=== PATIENT | female | born 1940 | race Two or more races ===

== ENCOUNTER 2017-10-07 11:59 | Inpatient (IN) | payer MEDICARE, MEDICAID ==
[~2017-10-07] VITALS: Ht 320 cm; Wt 103.2 kg
[~2017-10-07 11:59] MED LIST: ALBUAER3 IN; ALPR0.25 PO; BIMA0.01 OP; BRIM0.2S2 OP; CAR125T OR; FLUC100T34 PO; GLI2T PO; HYDR-1421; LEVO500T21 PO; PANT40T PO; PANT40TA2 PO; PRAV20TA3 PO; SACC250C PO
[2017-10-07 13:58] LABS: Basophils # (auto) 0.1 uL; Basophils % (auto) 0.6 % (0.0-2.0); Eosinophils # (auto) 0.2 uL; Eosinophils % (auto) 2.7 % (0.0-7.0); Hematocrit 33.9 % (36.0-46.0); Lymphocytes # (auto) 1.5 uL; Lymphocytes % (auto) 17.5 % (10.0-50.0); Mean Corpuscular Hgb Conc. 32.5 g/dL (32.0-36.0); Mean Corpuscular Volume 98.3 fL (80.0-100.0); Monocytes # (auto) 0.6 uL; Monocytes % (auto) 6.7 % (0.0-12.0); Neutrophils # (auto) 6.3 uL; Neutrophils % (auto) 72.5 % (37.0-80.0); Platelet Count (auto) 176 10^3/uL (140-450); Red Blood Cells 3.45 10^6/uL (4.0-5.20); Red Cell Distribution Width 16.3 % (11.8-14.3); White Blood Cell 8.7 10^3/uL (4.4-10.8)
[2017-10-07 14:12] LABS: INR 0.98 (0.9-1.15); Partial Thromboplastin Time 25.3 sec (22.64-33.71); Prothrombin Time 10.7 sec (9.37-12.3)
[2017-10-07 14:25] LABS: Albumin 3.2 g/dL (3.4-5.0); BUN/Creatinine Ratio 23.5; Calcium 9.9 mg/dL (8.5-10.1); Potassium 3.9 mmol/L (3.5-5.1)
[2017-10-07 14:29] LABS: Bilirubin, Total 0.6 mg/dL (0.2-1.0); Total Protein 7.6 g/dL (6.4-8.2)
[2017-10-07 14:52] LABS: Urine Bacteria NONE SEEN /hpf (None Seen); Urine Blood Negative /uL (Negative); Urine Specific Gravity 1.007 (1.001-1.035); Urine WBC <1 /hpf (0 - 5)
[2017-10-07] MEDS ORDERED: ENOXAPARIN SOD 100 MG/1 ML SYRINGE SC ONE (15:30)
[2017-10-07] MEDS ORDERED: ASPirin 81 mg TAB PO ONE (15:30)
[2017-10-07] MEDS ORDERED: FUROSEMIDE 40 MG/4 ML VIAL IV ONE (15:30)
[2017-10-07] MEDS ORDERED: MORPHINE SULFATE 10 MG/ML INJ 1ML SDV IV PRN (15:45)
[2017-10-07] MEDS ORDERED: NITROGLYCERIN 0.4 MG SL TAB SL PRN (15:45)
[2017-10-07] MEDS ORDERED: DEXTROSE (50%) 50ML SYRG IV PRN (15:45)
[2017-10-07] MEDS ORDERED: METOLAZONE 5 MG TAB PO ONE (16:00)
[2017-10-07] MEDS: ACCU-CHEK COMFORT CURVE STRIP VI SCH ×2 (16:45→20:53)
[2017-10-07] MEDS: InsuLIN REG 1unit/0.01ml Soln (100units/ml) SC SCH ×2 (16:50→21:19)
[2017-10-07] MEDS: FUROSEMIDE 40 MG/4 ML VIAL IV SCH (19:02)
[2017-10-07 19:48] VITALS: BP 131/79
[2017-10-07] MEDS: CARVEDILOL 12.5 MG TAB PO SCH (20:53)
[2017-10-07] MEDS ORDERED: ACETAMINOPHEN 500 MG TAB PO PRN (21:00)
[2017-10-07 22:00] VITALS: BP 133/79
[2017-10-08 05:47] VITALS: BP 110/53
[2017-10-08] MEDS: ACCU-CHEK COMFORT CURVE STRIP VI SCH ×4 (06:03→21:58)
[2017-10-08] MEDS: InsuLIN REG 1unit/0.01ml Soln (100units/ml) SC SCH ×4 (06:03→21:58)
[2017-10-08] MEDS: FUROSEMIDE 40 MG/4 ML VIAL IV SCH ×2 (06:03→17:54)
[2017-10-08 06:49] LABS: BUN/Creatinine Ratio 23.1; Calcium 9.2 mg/dL (8.5-10.1); Potassium 3.5 mmol/L (3.5-5.1)
[2017-10-08 09:00] VITALS: BP 114/46
[2017-10-08] MEDS: ALLOPURINOL 100 MG TAB PO SCH (10:29)
[2017-10-08] MEDS: ENALAPRIL MALEATE 2.5 MG TAB PO SCH (10:29)
[2017-10-08] MEDS: PRASUGREL HCL 10 MG TAB PO SCH (10:30)
[2017-10-08] MEDS: METOLAZONE 5 MG TAB PO SCH (10:31)
[2017-10-08] MEDS: CARVEDILOL 12.5 MG TAB PO SCH ×2 (10:33→21:42)
[2017-10-08] MEDS: ASPirin 81 mg TAB PO SCH (10:33)
[2017-10-08 13:11] VITALS: BP 126/71
[2017-10-08] MEDS: DOCUSATE SOD 100 MG CAP PO SCH ×2 (16:47→21:42)
[2017-10-08 17:00] VITALS: BP 109/60
[2017-10-08] MEDS: ALPRAZolam 0.5 MG TAB PO PRN (21:42)
[2017-10-08 22:00] VITALS: BP 100/44
[2017-10-09 05:00] VITALS: BP 101/58
[2017-10-09 05:25] LABS: Basophils # (auto) 0.1 uL; Basophils % (auto) 1.3 % (0.0-2.0); Eosinophils # (auto) 0.3 uL; Eosinophils % (auto) 3.4 % (0.0-7.0); Hematocrit 37.4 % (36.0-46.0); Hemoglobin 12.3 g/dL (12.2-16.2); Lymphocytes # (auto) 1.5 uL; Lymphocytes % (auto) 20.4 % (10.0-50.0); Mean Corpuscular Hemoglobin 31.8 pg (28.0-32.0); Mean Corpuscular Hgb Conc. 32.8 g/dL (32.0-36.0); Monocytes # (auto) 0.6 uL; Monocytes % (auto) 8.3 % (0.0-12.0); Neutrophils % (auto) 66.6 % (37.0-80.0); Nucleated Red Blood Cells % 0.1 %; Platelet Count (auto) 196 10^3/uL (140-450); Red Blood Cells 3.86 10^6/uL (4.0-5.20); Red Cell Distribution Width 15.8 % (11.8-14.3); White Blood Cell 7.4 10^3/uL (4.4-10.8)
[2017-10-09 05:44] LABS: BUN/Creatinine Ratio 25.9; Calcium 9.8 mg/dL (8.5-10.1); Magnesium 2.2 mg/dL (1.6-2.6); Potassium 3.2 mmol/L (3.5-5.1)
[2017-10-09] MEDS: DOCUSATE SOD 100 MG CAP PO SCH ×3 (06:07→21:47)
[2017-10-09] MEDS: FUROSEMIDE 40 MG/4 ML VIAL IV SCH (06:07)
[2017-10-09] MEDS: InsuLIN REG 1unit/0.01ml Soln (100units/ml) SC SCH ×4 (06:27→21:55)
[2017-10-09] MEDS: ACCU-CHEK COMFORT CURVE STRIP VI SCH ×4 (06:28→21:55)
[2017-10-09 08:00] VITALS: BP 101/58
[2017-10-09 09:15] VITALS: BP 98/58
[2017-10-09] MEDS: ENALAPRIL MALEATE 2.5 MG TAB PO SCH (10:00)
[2017-10-09] MEDS: PRASUGREL HCL 10 MG TAB PO SCH (10:26)
[2017-10-09] MEDS: CARVEDILOL 12.5 MG TAB PO SCH ×2 (10:27→21:47)
[2017-10-09] MEDS: METOLAZONE 5 MG TAB PO SCH (10:33)
[2017-10-09] MEDS: ALLOPURINOL 100 MG TAB PO SCH (10:34)
[2017-10-09] MEDS: ASPirin 81 mg TAB PO SCH (10:35)
[2017-10-09] MEDS: ALPRAZolam 0.5 MG TAB PO PRN (10:38)
[2017-10-09 12:08] VITALS: BP 105/59
[2017-10-09] MEDS ORDERED: POTASSIUM CHL 10% (20 MEQ/15ML) 15ml ORAL SOLN PO ONE (12:30)
[2017-10-09] MEDS ORDERED: POTA10TA51 PO (15:56)
[2017-10-09 16:38] LABS: BUN/Creatinine Ratio 24.5; Calcium 9.5 mg/dL (8.5-10.1); Potassium 4.2 mmol/L (3.5-5.1)
[2017-10-09 16:58] VITALS: BP 99/56
[2017-10-09 21:43] VITALS: BP 94/56
[2017-10-10 05:08] VITALS: BP 110/66
[2017-10-10] MEDS: DOCUSATE SOD 100 MG CAP PO SCH ×2 (05:49→15:39)
[2017-10-10] MEDS: ACCU-CHEK COMFORT CURVE STRIP VI SCH ×3 (05:55→17:00)
[2017-10-10] MEDS: InsuLIN REG 1unit/0.01ml Soln (100units/ml) SC SCH ×3 (05:59→17:00)
[2017-10-10 06:41] LABS: Basophils # (auto) 0.1 uL; Eosinophils # (auto) 0.4 uL; Eosinophils % (auto) 4.2 % (0.0-7.0); Hemoglobin 13.6 g/dL (12.2-16.2); Lymphocytes # (auto) 2.2 uL; Lymphocytes % (auto) 24.4 % (10.0-50.0); Mean Corpuscular Hemoglobin 32.2 pg (28.0-32.0); Mean Corpuscular Hgb Conc. 33.1 g/dL (32.0-36.0); Mean Corpuscular Volume 97.2 fL (80.0-100.0); Monocytes # (auto) 0.7 uL; Monocytes % (auto) 8.1 % (0.0-12.0); Neutrophils # (auto) 5.7 uL; Neutrophils % (auto) 62.3 % (37.0-80.0); Platelet Count (auto) 246 10^3/uL (140-450); Red Blood Cells 4.21 10^6/uL (4.0-5.20); Red Cell Distribution Width 16.3 % (11.8-14.3); White Blood Cell 9.2 10^3/uL (4.4-10.8)
[2017-10-10 07:02] LABS: Calcium 10.3 mg/dL (8.5-10.1); Magnesium 2.4 mg/dL (1.6-2.6); Potassium 3.9 mmol/L (3.5-5.1)
[2017-10-10 07:05] LABS: BUN/Creatinine Ratio 27.3
[2017-10-10 07:58] VITALS: BP 103/64
[2017-10-10] MEDS ORDERED: POTASSIUM CHL 20 Meq TABLET PO SCH (10:00)
[2017-10-10] MEDS: CARVEDILOL 12.5 MG TAB PO SCH (10:00)
[2017-10-10] MEDS: ENALAPRIL MALEATE 2.5 MG TAB PO SCH (10:00)
[2017-10-10] MEDS ORDERED: FUROSEMIDE 40 MG/4 ML VIAL IV SCH (10:00)
[2017-10-10] MEDS: METOLAZONE 5 MG TAB PO SCH (10:00)
[2017-10-10] MEDS: PRASUGREL HCL 10 MG TAB PO SCH (10:10)
[2017-10-10] MEDS: ASPirin 81 mg TAB PO SCH (10:13)
[2017-10-10] MEDS: ALLOPURINOL 100 MG TAB PO SCH (10:14)
[2017-10-10] MEDS ORDERED: MORPHINE SULF INJ 2 MG/ML SYRINGE 1ML ONE (10:24)
[2017-10-10 13:00] VITALS: BP 103/65
[2017-10-10] MEDS ORDERED: FURO20TA PO (15:27)
[2017-10-10] MEDS ORDERED: ASPI81CH43 PO (15:27)
[2017-10-10 16:30] VITALS: BP 103/64
[2017-10-10 17:02] VITALS: BP 106/62
== END 2017-10-10 17:48 | disposition home or self-care (01) | DRG 291 ==
LOC: ER 11:59 → EDBD 11:59 → TELE 12:00 → TELE-WESTW 17:44
PROVIDERS: ADMIT Internal Medicine; ATTEND Nurse Practitioner Acute Care
DX: I13.0 Hypertensive heart and chronic kidney disease with heart failure and stage 1 through stage 4 chronic kidney disease, or unspecified chronic kidney disease (principal); I50.43 Acute on chronic combined systolic (congestive) and diastolic (congestive) heart failure; J96.10 Chronic respiratory failure, unspecified whether with hypoxia or hypercapnia; N18.4 Chronic kidney disease, stage 4 (severe); E11.22 Type 2 diabetes mellitus with diabetic chronic kidney disease; Z68.1 Body mass index [BMI] 19.9 or less, adult; I25.5 Ischemic cardiomyopathy; I25.10 Atherosclerotic heart disease of native coronary artery without angina pectoris; D64.9 Anemia, unspecified; I34.0 Nonrheumatic mitral (valve) insufficiency; E66.9 Obesity, unspecified; E78.5 Hyperlipidemia, unspecified; I48.2 Chronic atrial fibrillation; F41.9 Anxiety disorder, unspecified; I70.0 Atherosclerosis of aorta; M10.9 Gout, unspecified; Z83.3 Family history of diabetes mellitus; Z95.5 Presence of coronary angioplasty implant and graft; Z95.810 Presence of automatic (implantable) cardiac defibrillator; Z88.1 Allergy status to other antibiotic agents; Z88.5 Allergy status to narcotic agent; Z88.8 Allergy status to other drugs, medicaments and biological substances
CPT/HCPCS: 36415; 51702; 71046; 80048; 80053; 81001; 82962; 83036; 83735; 83880; 84100; 84443; 84484; 85025; 85610; 85730; 93005; 93306; 96374; J1815